=== PATIENT | female | born 1965 | race Caucasian/White ===

== ENCOUNTER 2017-01-24 20:56 | Observation (INO) | payer BC ==
[~2017-01-24] VITALS: Ht 167.6 cm; Wt 60.5 kg
[~2017-01-24 20:56] MED LIST: ACETAMINOPHEN PO; Bactrim,Septra DS 80 PO; CRESTOR10 MG; CRESTOR10 MG PO; Diflucan PO; FLEXERIL10 MG PO; FLORASTOR250 MG PO; Flexeril PO; GABAPENTIN100 MG PO; GABAPENTIN600 MG PO; GARAMYCIN5 M1 RIGHT EYE; Gabapentin PO; HUMALOG100 UNITS/ SQ; INSULIN PUMP IL; INSULIN PUMP MC; LISINOPRIL; Levaquin PO; MOTRIN600 MG PO; NABUMETONE500 M1 PO; NEURONTIN800 MG PO; Nabumetone PO; Neurontin PO; OXYCODON-ACETA1 EAC1 PO; OXYCODONE PO; OXYCODONE-APAP1 EACH PO; PERCOCET 10/1 TABLET PO; PERCOCET 5/31 TABLET PO; PERCOCET 7.5-31 EACH; Percocet 5/325,Endoc PO; ZETIA10 MG; ZETIA10 MG PO
[2017-01-24 21:20] LABS: HEMATOCRIT 39.2 % (36.0-46.0); MCH 31.6 PG (29.0-34.0); MCHC 33.9 G/DL (30.0-36.0); MCV 93.1 FL (83-99); MEAN PLAT.VOLUME 9.5 uM^3 (9.5-12.4); PLATELET COUNT 227 K/uL (156-360); RBC DIS.WIDTH-CV 11.3 % (11.8-14.6); RBC DIS.WIDTH-SD 38.5 % (39-53); RED BLOOD COUNT 4.21 M/uL (3.80-5.20); WHITE BLOOD COUNT 8.8 K/uL (4.1-10.2)
[2017-01-24 21:29] LABS: CHLORIDE 107 mEq/L (99-109); POTASSIUM 3.6 mEq/L (3.7-5.4); SODIUM 140 mEq/L (136-147)
[2017-01-24 21:30] LABS: GLUCOSE 106 mg/dL (70-99)
[2017-01-24 21:32] LABS: ANION GAP 9 MEQ/L (2-14)
[2017-01-24 21:34] LABS: GFR ESTIMATE (CALCULATED) > 59 mL/min/
[2017-01-24 21:35] LABS: UREA NITROGEN (BUN) 16 mg/dL (9-23)
[2017-01-24 21:40] LABS: TROP-I INTERPRETATION NEGATIVE; TROPONIN-I < 0.01 ng/mL (0.0-0.30)
[2017-01-24 22:01] LABS: TOTAL BILIRUBIN 0.2 mg/dL (0.0-1.0)
[2017-01-24 22:02] LABS: ALKALINE PHOSPHATASE 130 IU/L (3-129)
[2017-01-24 22:05] LABS: DIRECT BILIRUBIN 0.1 mg/dL (0.0-0.3)
[2017-01-24 22:06] LABS: LIPASE 11 U/L (1.0-51.0)
[2017-01-24] MEDS ORDERED: GABAPENTIN800 MG PO ×3 (22:26→22:28)
[2017-01-24] MEDS ORDERED: NYSTATIN15 GM TP (22:28)
[2017-01-24] MEDS ORDERED: MELOXICAM15 MG PO (22:28)
[2017-01-24] MEDS ORDERED: FLEXERIL10 MG PO (22:28)
[2017-01-25 00:26] VITALS: BP 120/64
[2017-01-25 03:54] VITALS: BP 95/50
[2017-01-25 04:26] LABS: TROP-I INTERPRETATION NEGATIVE; TROPONIN-I < 0.01 ng/mL (0.0-0.30)
[2017-01-25 05:55] LABS: HDL CHOLESTEROL 53 MG/DL (Desirable>=50); LDL CHOLESTEROL 115 mg/dL (Desirable<100); NON-HDL CHOLESTEROL 140 mg/dL (Desirable<160); TOTAL CHOLESTEROL 193 mg/dL (Desirable<200); TRIGLYCERIDES 123 MG/DL (Normal: <150)
[2017-01-25 07:40] VITALS: BP 100/61
[2017-01-25 09:19] LABS: TROP-I INTERPRETATION NEGATIVE; TROPONIN-I < 0.01 ng/mL (0.0-0.30)
[2017-01-25] MEDS ORDERED: ATORVASTATIN CA80 MG PO (09:51)
[2017-01-25] MEDS ORDERED: ASPIRIN81 M2 PO (09:52)
[2017-01-25 10:55] LABS: Estimated Average Glucose 232 mg/dL (70-123); HEMOGLOBIN A1c (GLYCOHEMOGLOB) 9.7 % HGB (Below 5.7)
== END 2017-01-25 11:05 | disposition home or self-care (01) ==
LOC: EME → EDBD 20:56 → EME 20:56 → 5WEST 22:25 → EDOF 22:25 → ENRESERV 22:26 → 5WEST 23:18
PROVIDERS: Hospitalist; Physician Assistant Medical
DX: R07.89 Other chest pain (principal); E10.9 Type 1 diabetes mellitus without complications; E78.5 Hyperlipidemia, unspecified; Z96.41 Presence of insulin pump (external) (internal); F17.200 Nicotine dependence, unspecified, uncomplicated; Z82.49 Family history of ischemic heart disease and other diseases of the circulatory system; G89.29 Other chronic pain; M51.17 Intervertebral disc disorders with radiculopathy, lumbosacral region; K52.9 Noninfective gastroenteritis and colitis, unspecified; Z87.442 Personal history of urinary calculi; Z87.440 Personal history of urinary (tract) infections; Z86.19 Personal history of other infectious and parasitic diseases; Z90.49 Acquired absence of other specified parts of digestive tract; Z90.710 Acquired absence of both cervix and uterus; Z83.3 Family history of diabetes mellitus; Z88.0 Allergy status to penicillin; Z88.1 Allergy status to other antibiotic agents; Z79.4 Long term (current) use of insulin
CPT/HCPCS: 71020; 80048; 80061; 80076; 82948; 83036; 83690; 84484; 85027; 87493; 93005; 99281; 99284; G0378